=== PATIENT | male | born 1955 | race Caucasian/White ===

== ENCOUNTER → 2023-09-04 10:57 | Outpatient (REF) | payer OTHER, SELFPAY | LOC: PET 10:57 | PROVIDERS: ATTENDING PHYSICIAN Specialist | DX: C61 Malignant neoplasm of prostate (principal) | CPT/HCPCS: 78815; A9595 ==

== ENCOUNTER 2024-01-23 15:57 | Emergency (ER) | payer OTHER, SELFPAY ==
[2024-01-23 16:00] VITALS: BP 128/89
[2024-01-23 16:44] LABS: % Basophils 0.4 % (0-2); % Eosinophils 0.8 % (0-6); % Immature Granulocytes 0.1 % (0-0.5); % Lymphocytes 30.5 % (20.5-51.1); % Neutrophils 60.2 % (42.2-75.2); Absolute Eosinophils 0.1 10^3/uL (0-0.7); Absolute Lymphocytes 2.6 10^3/uL (1.2-3.4); Absolute Monocytes 0.7 10^3/uL (0.1-0.6); Absolute Neutrophils 5.1 10^3/uL (1.4-6.5); Hematocrit 39.6 % (39.0-52.0); Hemoglobin 13.1 g/dL (13.0-18.0); Mean Corp Hgb Conc. 33.1 g/dL (33.0-37.0); Mean Corpuscular Hgb 22.6 pg (27.0-31.0); Mean Corpuscular Volume 68.3 fL (80.0-94.0); Mean Platelet Volume 9.5 fL (7.4-10.4); Nucleated Red Blood Cells % 0 % (-); Platelet Count 258 10^3/uL (130-400); Red Cell Dist. Width 16.1 % (11.5-14.5); White Blood Cell Count 8.5 10^3/uL (4.8-10.8)
[2024-01-23] MEDS: NSS 500 IV (16:46)
--- NOTE | 2024-01-23 16:47 | ED.GENMED ---
History of Present Illness
General
Chief Complaint: Cardiac Symptoms
Source: patient
Exam Limitations: none
Time Seen by Provider: 01/23/24 16:13
History of Present Illness
History of Present Illness:
Patient was working outside. 2 hours of lightheadedness. Noticed on his watch that his heart rate was 115 his blood pressure was low. Self resolved after 2 hours. No chest pain no shortness of breath. No complaints currently. History of A-fib.
History of ablation.
Past History
Past History
ED Past Medical History: Arrthythmia, Cancer (prostate), HTN, Hypercholesterolemia and Other (arthritis both wrists gets Cortison injections q 3 months for past year, last done earlier this month)
ED Past Surgical History: Cardiac (Ablation), Orthopedic and Urological (prostatectomy (no chemo or radiation tx))
Social History
Tobacco: Non-smoker
Alcohol: Occasional
Personal: Other ()
Living: alone
Employment: Retired
Phy Exam
Physical Exam
Physical Exam:
GENERAL: Alert and oriented in no apparent distress
EYE: Orbits normal.
NECK: Supple, no thyroid palpable borderline tachycardia. Regular.
ENT: Pharynx without erythema
CARDIAC: Regular rate and rhythm without any obvious murmurs.
LUNGS: Clear breath sounds,normal
ABDOMEN: Soft, without focal tenderness or distention
NEUROLOGICAL: Alert and oriented , grossly non-focal
SKIN: Warm and dry, no rash or lesion, no discoloration, skin intact.
MUSCULOSKELETAL: No edema,no deformity.Good color
PSYCH: Normal and appropriate interaction.
Scores
[id number] Score for Afib Stroke Risk
Age in Years (65=0, 65-74=1, >/=75=2): 65-74
Sex (Female=+1): Male
Congestive Heart Failure History (Yes=+1): No
Hypertension History (Yes=+1): Yes
Stroke/TIA/Thromboembolism History (Yes=+2): No
Vascular Disease History (Yes=+1): No
Diabetes Mellitus (Yes=+1): No
Score: 2
Anticoagulation Recommendations: Recommend anticoagulation (as validated in nonvalvular fib)
Course
Orders/Labs/Results
Orders:
Orders
01/23/24 16:05
EKG [Electrocardiogram (*1)] Urgent
Reason for Study: Palpitations
EKG- Treatment ONCE
01/23/24 16:32
Cardiac Monitoring- Treatment ONCE
IV Insert/Care/Rem.- Treatment PRN
0.9% Sodium Chloride 500 ml [Nss] 500 ml IV BOLUS
Pulse Ox/cont/shift [RESP] Stat
Quantity: 1
01/23/24 16:38
Basic Metabolic Panel Urgent
Complete Blood Count/With Diff Urgent
TSH Reflex To Free T4 Urgent
Troponin I Urgent
01/23/24 17:24
Potassium Chloride 10% Elixir [KCl Elixir] 40 meq PO NOW STA
01/23/24 17:32
Potassium Chloride [KCl] 20 meq 0.9% Sodium Chloride 150 ml [Nss] 150 ml IV NOW
Abnormal Lab Results
01/23/24
16:38
MCV 68.3 L fL
(80.0-94.0)
MCH 22.6 L pg
(27.0-31.0)
RDW 16.1 H %
(11.5-14.5)
Absolute Monos (auto) 0.7 H 10^3/uL
(0.1-0.6)
Potassium 3.0 L mmol/L
(3.5-5.1)
BUN 36 H mg/dl
(9-20)
Glucose 174 H mg/dl
(70-99)
01/23/24 16:38
01/23/24 16:38
Vital Signs
Initial and Last Documented VS:
Initial Vital Signs
Temp Pulse Resp BP Pulse Ox
98.1 F 116 18 128/89 99
01/23/24 16:00 01/23/24 16:00 01/23/24 16:00 01/23/24 16:00 01/23/24 16:00
Last Documented Vital Signs
Temp Pulse Resp BP Pulse Ox
98.1 F 70 18 111/69 100
01/23/24 16:00 01/23/24 18:58 01/23/24 18:58 01/23/24 18:58 01/23/24 18:58
MDM/Problems Addressed
Differential Diagnosis Includes:
Patient describing transient tachycardic rhythm self resolving. Not truly describing ischemic cardiac symptoms. History of A-fib. Likely A-fib a flutter or SVT although we will never know for sure. Monitor labs. If all stable can be discharged
to follow-up. Krishan Troncoso is 1. He should talk to his healthcare corporate account director and follow-up to at least consider anticoagulation although with no proven arrhythmia he would be reluctant to start anticoagulation today
*Pulse Oximetry
Patient hypoxic: no
*EKG
Interpreted by ED Provider?: Yes
Interpretation: abnormal
Comparison EKG: changes noted
Heart Rate: 107
Rate: tachycardiac
Rhythm: sinus
[place]: normal axis
Interval: normal interval
QRS Pattern: right bundle branch block (inc)
Ischemia: no ischemia
*Visual Basic .Net Developer Interpretation
Rate: tachycardiac
Interpretation: abnormal
Heart Rate: 102
Rhythm: sinus
*Critical Care Note
Total Time (30-74mins, 75-104mins- exclusive of procedures): Not Applicable
Data Reviewed
Review of Other/Old Records Reveals: Labs, Records and Testing
Update Note
Update Note:
193... Patient is remained stable and nontoxic. No arrhythmias. Cardiology made aware. Agree with discharge to follow-up
ED Attending Note
-
Portions of this chart may have been created with voice recognition software.� Occasional wrong word or��sound alike� substitutions may have occurred due to the inherent limitations of voice recognition software.
Discharge Plan
Departure
Patient Disposition: Home (Routine Discharge)
Date of Disposition: 01/23/24
Time of Disposition: 19:34
Patient with high blood pressure during this ER visit?: Yes
Discharge Problem:
Transient tachycardic rhythm, History of A-fib ablation, Hypokalemia, Hyper glycemia
Instructions: Hypokalemia, Tachycardia, Arrhythmias (DC), High Blood Sugar, Adult ED
Prescriptions:
No Action
apixaban [Eliquis] 5 MG tablet
5 mg PO BID Qty: 60 5RF
atorvastatin 10 MG tablet
20 mg PO QPM
diltiazem HCl 180 MG capsule,extended release 24hr
180 mg PO DAILY
multivitamin 1 EACH tablet
1 ea PO DAILY
zinc 50 MG tablet
50 mg PO DAILY
L.acidoph, paracasei,B. lactis 1 EACH capsule
1 ea PO DAILY
metformin 500 MG tablet extended release 24 hr
500 mg PO QPM
metoprolol succinate 100 MG tablet extended release 24 hr
100 mg PO BID
Referrals:
Tha Mackey MD [Family Provider] - Follow up in 2-3 days
Kam Mahan DO [Active] - Follow up in 2-3 days
Activity Restrictions/Additional Instructions:
Call your healthcare corporate account director Thursday for close follow-up
Interventions
Interventions:
ED- Fall Risk Assessment Last Done: 01/23/24 17:05
ED- Pulmonary Assessment Last Done: 01/23/24 17:05
ED- Cardiac Assessment Last Done: 01/23/24 17:05
Discharge Date and Time
Print Language: ICELANDIC
[2024-01-23 17:00] LABS: Blood Urea Nitrogen 36 mg/dl (9-20); Calcium 9.5 mg/dl (8.4-10.2); Carbon Dioxide 24 mmol/L (22-30); Chloride 106 mmol/L (98-107); Glucose 174 mg/dl (70-99); Sodium 137 mmol/L (135-145); eGFR > 60.00
[2024-01-23 17:11] LABS: Troponin I < 0.012 ng/ml
[2024-01-23 17:30] LABS: TSH Reflex To Free T4 0.76 uIU/ml (0.47-4.68)
[2024-01-23] MEDS: KCL 160 MEQ IV (17:51)
[2024-01-23] MEDS: KCL ELIXIR 40 MEQ PO (17:51)
[2024-01-23 18:00] VITALS: BP 111/69
[2024-01-23 18:58] VITALS: BP 111/69
[2024-01-23 19:00] VITALS: BP 116/81
== END 2024-01-23 19:57 | disposition home or self-care (01) ==
LOC: EMR 15:57
PROVIDERS: EMERGENCY PHYSICIAN Emergency Medicine; FAMILY PHYSICIAN Family Medicine
DX: R00.0 Tachycardia, unspecified (principal); I48.91 Unspecified atrial fibrillation; I10 Essential (primary) hypertension
CPT/HCPCS: 99284; 96360; 96361; 80048; 84443; 84484; 85025; 93005